=== PATIENT | female | born 2000 | race Caucasian/White ===

== ENCOUNTER 2021-10-24 20:39 | Emergency (ER) | payer OTHER ==
[~2021-10-24] VITALS: Ht 165.1 cm; Wt 67.1 kg
[2021-10-24] MEDS ORDERED: ONDANSETRON ODT 4 MG TAB.RAPDIS ONE (21:08)
[2021-10-24] MEDS ORDERED: IV NORMAL SALINE 1,000ML 1,000 ML IV ONE (21:15)
[2021-10-24] MEDS ORDERED: LIDO:MAALOX 1:1 20 ML SINGLE DOSE. PO ONE (21:15)
[2021-10-24] MEDS ORDERED: ONDANSETRON ODT 4 MG TAB.RAPDIS PO ONE (21:15)
[2021-10-24] MEDS ORDERED: ONDANSETRON PF 4 MG/2 ML VIAL. IVP ONE (21:15)
--- NOTE | 2021-10-24 21:15 | PHYS DOC ---
General Adult EDM: Chief Complaint: NAUSEA/VOMITING/DIARRHEA HPI: HPI: Patient is a 20-year-old female who presents to the emergency department stating "I think I'm dehydrated". Patient reports that she has had nausea and vomiting over the last 6 days. She reports that she can now start to tolerate oral intake but continues to feel nausea. Patient reports that she has chronic abdominal pain in which she has an appointment to see a GI specialist. She reports that on Friday she went to another emergency department and was evaluated. She states that at that time she did have a CT scan of her abdomen which was normal except it showed "stomach inflammation". She was given antinausea medication and reflux medication but she reports the nausea medication is not helping. Patient denies diarrhea, cough, shortness of breath, fevers, urinary symptoms, sick exposures, blood in her stools or vomit. (BREANNA ARREOLA APRN) Review of Systems: Review of Systems: Constitutional: See HPI Respiratory: See HPI GI: See HPI : See HPI (BREANNA ARREOLA APRN) Allergies: Allergies: Allergies Coded Allergies Type Severity Reaction Last Updated Verified No Known Drug Allergies 10/24/21 No (BREANNA ARREOLA APRN) Physical Exam: PE: Constitutional: Well developed, well nourished, no acute distress, non-toxic appearance. [] HENT: Normocephalic, atraumatic, bilateral external ears normal, oropharynx moist, no oral exudates, nose normal. [] Eyes: PERRL, EOMI, conjunctiva normal, no discharge. [] Neck: Normal range of motion, no stridor Cardiovascular:Heart rate regular rhythm, no murmur [] Lungs & Thorax: Bilateral breath sounds clear to auscultation [] Abdomen: Bowel sounds normal, soft, no abdominal guarding or rigidity, epigastric abdominal tenderness with palpation, no masses, no pulsatile masses. [] Skin: Warm, dry, no erythema, no rash. [] Back: Normal range of motion Extremities: No tenderness, no cyanosis, no clubbing, ROM intact, no edema. [] Neurologic: Alert and oriented X 3, normal motor function, normal sensory function, no focal deficits noted. [] Psychologic: Affect normal, judgement normal, mood normal. [] (BREANNA ARREOLA APRN) Current Patient Data: Labs: Laboratory Tests Test 10/24/21 20:51 10/24/21 21:36 Urine Collection Type Unknown Urine Color Yellow Urine Clarity Clear Urine pH 6.5 Urine Specific [place] 1.025 Urine Protein Neg Urine Glucose (UA) Neg mg/dL Urine Ketones (Stick) 15 mg/dL Urine Blood Trace Urine Nitrite Neg Urine Bilirubin Neg Urine Urobilinogen Dipstick 0.2 mg/dL Urine Leukocyte Esterase Neg Urine RBC Occ /HPF Urine WBC 1-4 /HPF Urine Squamous Epithelial Cells Mod /LPF Urine Bacteria 0 /HPF Bedside Urine HCG, Qualitative hcg negative Current Medications Medications (Trade) Dose Ordered Sig/Dionne Route PRN Reason Start Time Stop Time Status Last Admin Dose Admin Sodium Chloride 1,000 ml @ 1,000 mls/hr 1X ONCE IV 10/24/21 21:15 10/24/21 22:14 Ondansetron HCl (Zofran) 4 mg 1X ONCE IVP 10/24/21 21:15 10/24/21 21:18 DC Ondansetron HCl (Zofran Odt) 4 mg STK-MED ONCE .ROUTE 10/24/21 21:08 10/24/21 21:08 DC Ondansetron HCl (Zofran Odt) 4 mg 1X ONCE PO 10/24/21 21:15 10/24/21 21:18 DC 10/24/21 21:24 Multi-Ingredient Mouthwash/Gargle (Gi Cocktail) 20 ml 1X ONCE PO 10/24/21 21:15 10/24/21 21:18 DC Metoclopramide HCl (Reglan Vial) 10 mg 1X ONCE IM 10/24/21 21:45 10/24/21 21:46 DC 10/24/21 21:40 Metoclopramide HCl (Reglan Vial) 10 mg STK-MED ONCE .ROUTE 10/24/21 21:37 10/24/21 21:38 DC (BREANNA ARREOLA APRN) EKG: EKG: [] (BREANNA ARREOLA APRN) Radiology/Procedures: Radiology/Procedures: [] (BREANNA ARREOLA APRN) Heart Score: C/O Chest Pain: N/A Risk Factors: Risk Factors: DM, Current or recent (<one month) smoker, HTN, HLP, family history of CAD, obesity. Risk Scores: Score 0 - 3: 2.5% MACE over next 6 weeks - Discharge Home Score 4 - 6: 20.3% MACE over next 6 weeks - Admit for Clinical Observation Score 7 - 10: 72.7% MACE over next 6 weeks - Early Invasive Strategies (BREANNA ARREOLA APRN) Course & Med Decision Making: Course & Med Decision Making Pertinent Labs and Imaging studies reviewed. (See chart for details) Patient presents to the emergency department for nausea and vomiting x6 days. Patient reports erika she was seen in the emergency department on Friday and had a CT scan which showed gastritis and she was discharged home with nausea medication and something for reflux. She reports that the nausea medication is not helping. Patient reports that she can tolerate some fluids. Work-up in the ER consisted of urinalysis and test. Patient was given nausea me dication and a GI cocktail to help with her gastritis. Patient's vital signs are stable, she has moist mucous membranes, she is producing urine, cap refill less than 3 seconds. Patient has no objective signs of dehydration. UA unremarkable. Negative test. Patient refused GI cocktail. she was given 10mg Reglan IM. Patient was p.o. challenged and able to tolerate oral i ntake. Patient advised to continue taking her nausea medication and her Pepcid as previously prescribed. Patient advised to stick to a clear liquid diet or a brat diet and avoid any spicy, greasy or fatty foods. Patient advised to follow-up with her GI doctor as previously scheduled. I discussed with patient all findings and diagnostic testing as well as the need to follow-up with PCP for further evaluation and treatment or return to the ER if any new or worsening symptoms. Strict return precautions were also discussed at length. Patient voiced understanding and agreement with the plan. Patient is hemodynamically stable at the time of disposition. (BREANNA ARREOLA APRN) Course & Med Decision Making Did not see or evaluate patient. Did not discuss patient with [facility]. Generally agree with [facility]'s work-up and disposition per note. (BRUCE WATERS MD) Laura Disclaimer: Laura Disclaimer: This electronic medical record was generated, in whole or in part, using a voice recognition dictation system. (BREANNA ARREOLA APRN) Departure Departure: Impression: Primary Impression: Nausea & vomiting Qualified Codes: R11.2 - Nausea with vomiting, unspecified Disposition: HOME / SELF CARE / HOMELESS Condition: GOOD Referrals: PCP,NO (PCP) Patient Instructions: Nausea and Vomiting Additional Instructions: You are seen in the emergency department today for nausea and vomiting. Your vital signs are stable and your physical exam is reassuring. Your urinalysis did not show any infection. You were treated with nausea medication in the emergency department. Continue take the nausea medication as prescribed by the ER that you are previously seen at. Please increase your fluids. Please stick to a bland diet or clear liquid diet. Clear liquids that you can have would be soups/broths, Jell-O, Gatorade's. [place] diet includes a brat diet which is bananas, rice, applesauce and toast. Avoid eating any spicy, greasy or fatty foods. Follow-up with the GI specialist as previously scheduled. Return to the emergency department if you develop high fevers refractory to treatment, severe abdominal pain, severe back pain, intractable nausea or vomiting, blood in your stools or vomit or any new or worsening concerns. BREANNA ARREOLA APRN Oct 24, 2021 21:15 BRUCE WATERS MD Oct 24, 2021 23:04
[2021-10-24] MEDS ORDERED: METOCLOPRAMIDE HCL 10 MG/2 ML VIAL. ONE (21:37)
[2021-10-24] MEDS ORDERED: METOCLOPRAMIDE HCL 10 MG/2 ML VIAL. IM ONE (21:45)
[2021-10-24 21:50] LABS: CLARITY,URINE CLEAR; COLOR,URINE YELLOW; GLUCOSE,URINE NEG (NEG)
[2021-10-24 21:51] LABS: BACTERIA,URINE 0 /HPF (0-FEW); NITRITE,URINE NEG (NEG); RBC,URINE OCC /HPF (0-2); SQUAMOUS EPITHELIAL CELL,UR MOD /LPF; UROBILINOGEN,URINE 0.2 mg/dL (0.2 mg/dL)
[2021-10-24 22:06] VITALS: BP 129/77
== END 2021-10-24 22:12 | disposition home or self-care (01) ==
LOC: ER 20:39
DX: R11.2 Nausea with vomiting, unspecified (principal); R10.13 Epigastric pain; G89.29 Other chronic pain
CPT/HCPCS: 81001; 81025; 96372; 99283; J2765; Q0162